=== PATIENT | male | born 1995 | race Caucasian/White ===

== ENCOUNTER 2017-10-08 07:49 | Emergency (ER) | payer OTHER ==
[2017-10-08 07:56] VITALS: BP 115/62; BMI 21.7
[2017-10-08] MEDS ORDERED: TORADOL 60 MG VIAL IM ONE (08:24)
[2017-10-08] MEDS ORDERED: TORADOL 60 MG VIAL ONE (08:26)
--- NOTE | 2017-10-08 08:39 | DR.HEADACH ---
HPI - Time Seen Time seen: 08:20 - Primary Care Physician Primary Care Physician: inez - HPI Comment HPI Comment: A Lt. temporal headache that is throbbing. He denies associated N/ V. He has no associaed symptoms. The h/a has been intermittent. He has not sought medical help so far. - Complaint/Symptoms Chief Complaint:: PT C/O SEVERE HEADACHE THAT HE HAS HAD ON AND OFF FOR 2 WEEKS NOW. PT STATES HIS HEADACHE IS ONLY GETTING WORSE. - Source History Provided: Patient - Mode of Arrival Mode of Arrival: Ambulatory - Timing Onset of Chief Complaint: 09/24/17 - Location Headache Location: Parietal - Severity Headache Severity: Severe, Worst Headache of Life PMH - PMH Past Medical History: Yes Past Medical History: Asthma, Diabetes Past Surgical History: Yes Surgical History: Tonsillectomy, Other - Family History History of Family Medical Conditions: Yes Family Medical History: Diabetes Mellitus, Cancer, Hypertension - Social History Does patient currently use any type of tobacco product: Yes Have you used tobacco products in the last 12 months: Yes Type of Tobacco Use: Cigarettes Does any household member use tobacco: Yes Alcohol Use: None Do you use any recreational Drugs:: No Lives With: Family Lives Where: Home - infectious screening In the last 2 months have you had wt loss of >10#?: NO Have you had fever, night sweats or hemotysis?: No Have you traveled outside the country in the last 6 months?: No Isolation: Standard ROS - Review of Systems Constitutional: No Symptoms Reported Eyes: No Symptoms Reported ENTM: No Symptoms Reported Respiratoy: No Symptoms Reported Cardiovascular: No Symptoms Reported Gastrointestinal/Abdominal: No Symptoms Reported Genitourinary: No Symptoms Reported Neurological: Headache Musculoskeletal: No Symptoms Reported Integumentary: No Symptoms Reported Hematologic/Lymphatic: No Symptoms Reported Endocrine: No Symptoms Reported Psychiatric: No Symptoms Reported PE - Vital Signs Vitals: Temperature 97.9 F Pulse Rate 72 Respiratory Rate 18 Blood Pressure [Left Arm] 102/53 Blood Pressure [Right Arm] 117/74 Blood Pressure 115/62 O2 Sat by Pulse Oximetry 99 - General Limitations: No Limitations General Appearance: Alert, In No Apparent Distress - Head Head Exam: Normal Inspection - Eyes Eye exam: Normal Appearance - ENT ENT Exam: Normal Exam External Ear Exam: Normal External Inspection - Neck Neck Exam: Normal Inspection - Chest Chest Inspection: Normal Inspection - Respiratory Respiratory Exam: Normal Lung Sounds Bilat - Cardiovascular Cardiovascular Exam: Regular Rate - Abdominal Exam Abdominal Exam: Normal Inspection, Normal Bowel Sounds, Soft - Extremities Extremities Exam: Normal Inspection - Back Back Exam: Normal Inspection - Neurologic Neurological Exam: Alert, Oriented X3 - Psychiatric Psychiatric Exam: Normal Affect, Normal Mood - Skin Skin Exam: Warm, Dry, Intact, Normal Color - Diagnosis Discharge Problem: Headache - Discharge Plan Disposition: HOME, SELF-CARE Condition: Stable - Follow ups/Referrals Follow ups/Referrals: NFD,None [Primary Care Provider] - 3 days - Instructions Instructions: Migraine Headache, [id number]
== END 2017-10-08 09:12 | disposition home or self-care (01) ==
LOC: ER 07:59
DX: R51 Headache (principal)
CPT/HCPCS: 96372; 99282; J1885